=== PATIENT | female | born 2000 | race African-American/Black ===

== ENCOUNTER 2022-10-17 11:15 | Emergency (ER) | payer OTHER ==
[~2022-10-17] VITALS: Ht 172.7 cm; Wt 81.8 kg
[2022-10-17 12:39] LABS: BASO % 0.4 % (0.0-1.0); EOS % 0.3 % (0.0-3.0); HEMATOCRIT 40.8 % (36.0-47.0); HEMOGLOBIN 12.8 g/dl (12.0-15.5); LYMPH # 1.8 10^3/uL (1.5-5.0); MEAN CORPUSCULAR HGB CONC 31.4 g/dl (32.0-36.5); MEAN CORPUSCULAR VOLUME 98.8 fl (80.0-96.0); MONO # 0.6 10^3/uL (0.0-0.8); MONO % 6.7 % (2.0-8.0); NEUTROPHILS # 6.4 10^3/uL (1.5-8.5); NEUTROPHILS % 72.3 % (36.0-66.0); PLATELET COUNT, AUTOMATED 273 10^3/uL (150-450); RED BLOOD COUNT 4.13 10^6/uL (4.00-5.40); WHITE BLOOD COUNT 8.9 10^3/uL (4.0-10.0)
[2022-10-17 13:04] LABS: CK-MB VALUE MASS < 1.0 NG/ML (<3.6)
[2022-10-17 13:06] LABS: BLOOD UREA NITROGEN 10 MG/DL (9-23); CALCIUM LEVEL 9.4 MG/DL (8.5-10.1); CARBON DIOXIDE LEVEL 29 MMOL/L (20-31); CHLORIDE LEVEL 106 MMOL/L (98-107); CREATININE FOR GFR 0.69 MG/DL (0.55-1.30); GLOMERULAR FILTRATION RATE > 60.0 (>60); GLUCOSE, FASTING 61 MG/DL (60-100); MAGNESIUM LEVEL 1.9 MG/DL (1.8-2.4); POTASSIUM SERUM 4.1 MMOL/L (3.5-5.1); SODIUM LEVEL 141 MMOL/L (136-145)
[2022-10-17 13:08] LABS: THYROID STIMULATING HORMONE 0.438 uIU/ML (0.55-4.78); THYROXINE (T4) 8.5 UG/DL (4.5-10.9)
[2022-10-17 13:09] LABS: FREE THYROXINE INDEX 3.3 % (1.3-4.8); T UPTAKE 39.3 % (22.5-37.0)
[2022-10-17 13:13] LABS: CPK CREATINE PHOSPHOKINASE 124 U/L (34-145)
[2022-10-17 13:45] VITALS: BP 125/59
== END 2022-10-17 13:52 | disposition home or self-care (01) ==
LOC: M ED 11:15
DX: R00.2 Palpitations (principal); N64.4 Mastodynia; R94.6 Abnormal results of thyroid function studies; F17.290 Nicotine dependence, other tobacco product, uncomplicated

== ENCOUNTER 2022-11-18 20:58 | Emergency (ER) | payer OTHER ==
[~2022-11-18] VITALS: Ht 172.7 cm; Wt 80.4 kg
[2022-11-18 20:59] VITALS: BP 117/82
== END 2022-11-18 22:06 | disposition left against medical advice (07) ==
LOC: M ED 20:58
DX: Z53.21 Procedure and treatment not carried out due to patient leaving prior to being seen by health care provider (principal)